=== PATIENT | male | born 2000 | race Caucasian/White ===

== ENCOUNTER 2019-01-11 01:37 | Emergency (ER) | payer BC ==
[2019-01-11] MEDS ORDERED: Sodium Chloride 0.9% 10 ML Syringe FLUSH PRN (02:01)
[2019-01-11] MEDS ORDERED: Ondansetron 4 MG/2 ML SDV IVPUSH ONE (02:02)
[2019-01-11] MEDS ORDERED: Pantoprazole 40 MG Vial IVPUSH ONE (02:02)
--- NOTE | 2019-01-11 02:09 | EDM.PDOC ---
ED HPI GENERAL MEDICAL PROBLEM - General Chief Complaint: Drug or Alcohol Abuse Stated Complaint: INTOXICATED Time Seen by Provider: 01/11/19 02:00 Source of Information: Reports: Patient, Other (friends) History Limitations: Reports: Intoxication - History of Present Illness INITIAL COMMENTS - FREE TEXT/NARRATIVE: Shayan comes into [facility] ED with friends who were partying with him this weekend. He began drinking at 9 pm including a dozen beers and a qt of liquor over the next 3 hours, and became acutely intoxicated with staggering gate, halting speech, loss of coordination, and falling down. A black out is also suspected. He was brought to the ED because of persistent vomiting and concerns for further black outs. No meds have been offered. Recreational drug abuse is not suspected. ED ROS GENERAL - Review of Systems Review Of Systems: ROS reveals no pertinent complaints other than HPI. ED EXAM, GENERAL - Physical Exam Exam: See Below Exam Limited By: Intoxication General Appearance: Alert, WD/WN, Mild Distress Eye Exam: Bilateral Eye: EOMI, Normal Inspection, PERRL Ears: Normal External Exam Nose: Normal Inspection Throat/Mouth: Normal Inspection, Normal Oropharynx Head: Atraumatic, Normocephalic Neck: Normal Inspection, Supple Respiratory/Chest: Lungs Clear, Normal Breath Sounds, Chest Non-Tender Cardiovascular: Regular Rate, Rhythm, No Murmur GI/Abdominal: Normal Bowel Sounds, Soft, No Organomegaly, No Distention, No Mass (Male) Exam: Deferred Rectal (Males) Exam: Deferred Back Exam: Normal Inspection Extremities: Normal Inspection Neurological: Alert, CN II-XII Intact, No Motor/Sensory Deficits, Confused, Slow to Respond Psychiatric: Flat Affect Skin Exam: Warm, Dry, Intact, Normal Color, No Rash Lymphatic: No Adenopathy Course - Vital Signs Text/Narrative:: Following assessment, an IV was started in the LUE and I administered NS 1 L over the next 2 hours, Zofran 8 mg IV, and Protonix 40 mg IV. Labs noted: Hgb 14.1 gm, WBC 12,700, plts normal; BMP baseline, BA 0.27 %. Patient was clinically improved at time of discharge. - Orders/Labs/Meds Orders: Active Orders 24 hr Category Date Time Status Peripheral IV Insertion Adult [OM.PC] Routine Oth 01/11/19 02:01 Ordered Labs: Laboratory Tests 01/11/19 01/11/19 01/11/19 Range/Units 02:14 02:14 02:14 WBC 12.7 H (4.5-12.0) X10-3/uL RBC 4.69 (4.30-5.75) x10(6)uL Hgb 14.1 (13.5-17.8) g/dL Hct 41.1 (30.0-51.3) % MCV 87.6 (80-96) fL MCH 30.1 (27.7-33.6) pg MCHC 34.4 (32.2-35.4) g/dL RDW 12.3 (11.5-15.5) % Plt Count 262 (125-369) X10(3)uL MPV 8.3 (7.4-10.4) fL Neut % (Auto) 55.6 (46-82) % Lymph % (Auto) 34.1 (13-37) % [place] % (Auto) 3.5 L (4-12) % Eos % (Auto) 6 H (1.0-5.0) % Baso % (Auto) 0 (0-2) % Neut # (Auto) 7.1 (1.6-8.3) # Lymph # (Auto) 4.3 (0.6-5.0) # [place] # (Auto) 0.4 (0.0-1.3) # Eos # (Auto) 0.8 (0.0-0.8) # Baso # (Auto) 0.1 (0.0-0.2) # Sodium 142 (135-145) mmol/L Potassium 3.6 (3.5-5.3) mmol/L Chloride 104 (100-110) mmol/L Carbon Dioxide 27 (21-32) mmol/L BUN 7 (7-18) mg/dL Creatinine 0.8 (0.70-1.30) mg/dL Est Cr Clr Drug Dosing TNP Estimated GFR (MDRD) > 60 (>60) BUN/Creatinine Ratio 8.8 L (9-20) Glucose 120 H (80-116) mg/dL Calcium 8.3 (8.2-10.1) mg/dL Ethyl Alcohol 0.27 H* (<0.03) % Meds: Medications Discontinued Medications Generic Name Dose Route Start Last Admin Trade Name Freq PRN Reason Stop Dose Admin Sodium Chloride 1,000 mls @ 500 mls/hr 01/11/19 02:15 01/11/19 02:10 Normal Saline IV 500 mls/hr ASDIRECTED LAURA Administration Ondansetron HCl 8 mg 01/11/19 02:02 01/11/19 02:20 Zofran IVPUSH 01/11/19 02:03 8 mg ONETIME ONE Administration Pantoprazole Sodium 40 mg 01/11/19 02:02 01/11/19 02:30 Protonix Iv IVPUSH 01/11/19 02:03 40 mg ONETIME ONE Administration Sodium Chloride 10 ml 01/11/19 02:01 Saline Flush FLUSH ASDIRECTED PRN Keep Vein Open Departure - Departure Time of Disposition: 04:30 Disposition: Home, Self-Care 01 Condition: Fair Clinical Impression: Alcohol abuse - Discharge Information *PRESCRIPTION DRUG MONITORING PROGRAM REVIEWED*: Not Applicable *COPY OF PRESCRIPTION DRUG MONITORING REPORT IN PATIENT MARQUISE: Not Applicable Instructions: Alcohol Intoxication, [id number] Referrals: PCP,None [Primary Care Provider] - Forms: ED Department Discharge - Problem List & Annotations (1) Alcohol abuse SNOMED Code(s): 84010933 Code(s): F10.10 - ALCOHOL ABUSE, UNCOMPLICATED Status: Acute Annotation/ Comment:: I suggested rest, detoxification, and avoidance of ETOH. - Problem List Review Problem List Initiated/Reviewed/Updated: Yes - My Orders Last 24 Hours: My Active Orders 01/11/19 02:01 Peripheral IV Insertion Adult [OM.PC] Routine - Assessment/Plan Last 24 Hours: My Active Orders 01/11/19 02:01 Peripheral IV Insertion Adult [OM.PC] Routine Plan: Consider CD assessment for binge drinking.
[2019-01-11] MEDS ORDERED: Sodium Chloride 0.9% 1,000 ML IV SCH (02:15)
== END 2019-01-11 04:40 | disposition home or self-care (01) ==
LOC: FB.ED 01:37
DX: F10.129 Alcohol abuse with intoxication, unspecified (principal); Y90.8 Blood alcohol level of 240 mg/100 ml or more
CPT/HCPCS: 36415; 80048; 80320; 85025; 99284; C9113; J2405; J7030; G0480